=== PATIENT | male | born 1960 | race Caucasian/White ===

== ENCOUNTER 2017-07-05 11:32 | Day surgery (SDC) | payer OTHER ==
[2017-07-05 12:17] VITALS: BMI 30.6
[2017-07-05] MEDS ORDERED: IBUPROFEN 800 MG/8 ML IJ IVPB PRN (14:17)
--- NOTE | 2017-07-05 14:17 | HP ---
History & Physical Update - History History: No Change - Physical Physical: No Change - Assessment Assessment: No Change - Plan Plan: No Change
[2017-07-05] MEDS ORDERED: ACETAMINOPHEN 1000 MG/100 ML VIAL (NON FORMULARY) IVPB ONE (14:18)
[2017-07-05] MEDS ORDERED: PROPOFOL 20 ML ONE (14:28)
[2017-07-05] MEDS ORDERED: MIDAZOLAM HCL 2 MG/2 ML SINGLE DOSE VIAL ONE (14:28)
[2017-07-05] MEDS ORDERED: DEXTROSE 5%-0.45% SALINE 1,000 ML IV SCH (14:30)
[2017-07-05] MEDS ORDERED: ceFAZolin SODIUM 1 GM VIAL IVPB ONE (14:45)
[2017-07-05] MEDS ORDERED: DEXAMETHASONE SOD PHOSPHATE 4 MG/1 ML VIAL ONE (14:48)
[2017-07-05] MEDS ORDERED: ceFAZolin SODIUM 1 GM VIAL ONE (14:48)
[2017-07-05] MEDS ORDERED: LIDOCAINE HCL 2% JELLY 10 ML CARTRIDGE ONE (15:31)
[2017-07-05] MEDS ORDERED: LIDOCAINE HCL 2% JELLY 10 ML CARTRIDGE TP ONE (15:34)
[2017-07-05] MEDS ORDERED: IOHEXOL 300 MG/ML INFUS..BTL IV ONE (15:34)
[2017-07-05] MEDS ORDERED: ONDANSETRON 4 MG/2 ML VIAL IVPUSH PRN (15:49)
[2017-07-05] MEDS ORDERED: oxyCODONE HCL 5 MG TABLET PO PRN (15:49)
[2017-07-05] MEDS ORDERED: LACTATED RINGERS SOLUTION 1,000 ML IV SCH (16:00)
[2017-07-05] MEDS ORDERED: ACETAMINOPHEN INJECTION 100 ML IVPB ONE (16:09)
[2017-07-05 16:49] VITALS: TEMP 98.2
[2017-07-05 19:02] VITALS: BP 150/80; PULSE 72
--- NOTE | 2017-08-15 09:55 | OP ---
DATE OF OPERATION: 07/05/2017 PREOPERATIVE DIAGNOSIS: Left ureteral calculus. POSTOPERATIVE DIAGNOSIS: Left ureteral calculus. PROCEDURE: Cystoscopy, left retrograde pyelogram, left laser lithotripsy, and stent placement. ANESTHESIA: General. SURGEON: Scott Mcconnell M.D. PREOPERATIVE INDICATION: The patient is a 66-year-old male who presents with a 2-cm stone at the left UPJ. He comes to OR for laser lithotripsy. OPERATION: Patient was brought to the OR, placed on the table in the supine position, given general anesthesia and IV antibiotics and placed in the modified lithotomy position. The groin was then prepped and draped sterilely. Cystoscopy was performed. The bladder appeared to be unremarkable. The prostate was slightly enlarged. The left UO was visualized. The wire was passed up into the left kidney. A 10 [place] catheter was used the UO. A second wire was passed up into the left kidney. A flexible ureteroscope was passed over the wire under fluoroscopic guidance, and easily was passed up into the kidney where the stone was. Using the Holmium Laser Fiber the stone was broken up into small fragments. No large pieces of stone were seen at the end of the case. No stones were seen in the course of the ureter as well. A 6 x 24 Double J ureteral stent was left in place with one loop in the bladder, and one loop in the kidney as seen on fluoroscopy. The bladder was emptied. The patient was woken up. Jassi [id number]
== END 2017-07-05 19:02 | disposition home or self-care (01) ==
LOC: JASU-SURG 11:32
PROVIDERS: ATTEND Urology
PROC: 0TF78ZZ Fragmentation in Left Ureter, Via Natural or Artificial Opening Endoscopic (ICD-10-PCS; principal; 2017-07-05 14:30)
PROC: 0T778DZ Dilation of Left Ureter with Intraluminal Device, Via Natural or Artificial Opening Endoscopic (ICD-10-PCS; 2017-07-05 14:30)
DX: N20.1 Calculus of ureter (principal)
CPT/HCPCS: 76000-TC; 94760